=== PATIENT | female | born 1995 | race African-American/Black ===

== ENCOUNTER 2018-01-13 08:50 | Outpatient (CLI) | payer OTHER ==
[~2018-01-13] VITALS: Ht 160 cm; Wt 53.0 kg
[2018-01-13 11:08] VITALS: BP 100/67
[2018-01-13] MEDS ORDERED: PRENATAL TABLE1 EAC3 PO (11:17)
[2018-01-13 12:32] LABS: AMPHETAMINE NEGATIVE (500 ng/mL); BARBITURATES NEGATIVE (200 ng/mL); BENZODIAZEPINES NEGATIVE (150 ng/mL); BUPRENORPHINE NEGATIVE (10 ng/mL); COCAINE NEGATIVE (150 ng/mL); METHADONE NEGATIVE (200 ng/mL); METHAMPHETAMINE NEGATIVE (500 ng/mL); OPIATES (MORPHINE) NEGATIVE (100 ng/mL); OXYCODONE NEGATIVE (100 ng/mL); PHENCYCLIDINE NEGATIVE (25 ng/mL); PROPOXYPHENE NEGATIVE (300 ng/mL); THC CANNABINOIDS NEGATIVE (50 ng/mL); TRICYCLIC ANTIDEPRESSANTS NEGATIVE (300 ng/mL)
[2018-01-13 12:47] LABS: SOURCE SWAB
[2018-01-13 12:52] LABS: APPEARANCE SL.HAZY ((CLEAR)); BILIRUBIN NEGATIVE; BLOOD NEGATIVE; COLOR YELLOW ((YELLOW)); GLUCOSE (STRIP) NEGATIVE; KETONES NEGATIVE; LEUKOCYTES LARGE; NITRITE NEGATIVE; PROTEIN (STRIP) NEGATIVE; SPECIFIC GRAVITY 1.005 (1.000-1.030); UROBILINOGEN 0.2 MG/DL (0.2-1.0)
[2018-01-13 13:08] LABS: BACTERIA 2+ /HPF; EPITHELIAL CELLS 2+ /HPF; MUCUS TRACE /LPF; RED BLOOD CELLS 0-5 /HPF (0-5); WHITE BLOOD CELLS 30-40 /HPF (0-5)
[2018-01-13] MEDS ORDERED: MACRODANTIN100 MG PO (14:30)
[2018-01-13] MEDS ORDERED: ONDANSETRON ODT8 MG PO (14:32)
[2018-01-13 20:44] LABS: CANDIDA DNA PROBE NEGATIVE; GARDNERELLA DNA PROBE NEGATIVE; TRICHOMONAS DNA PROBE NEGATIVE
== END 2018-01-13 15:50 | disposition home or self-care (01) ==
LOC: EME 08:50 → LDRP-OP 08:50 → EME 10:38 → 2WEST 10:43 → EDSTATUS 10:43 → 2WEST 10:43
PROVIDERS: Advanced Practice Midwife
DX: O23.43 Unspecified infection of urinary tract in pregnancy, third trimester (principal); W10.9XXA Fall (on) (from) unspecified stairs and steps, initial encounter; Z3A.29 29 weeks gestation of pregnancy
CPT/HCPCS: 59025; 76805; 81003; 82731; 87480; 87491; 87510; 87591; 87660; 99281; 99285; G0378; J7120